=== PATIENT | female | born 1975 | race Caucasian/White ===

== ENCOUNTER 2017-05-17 17:08 | Emergency (ER) | payer OTHER ==
[~2017-05-17] VITALS: Ht 165.1 cm; Wt 79.4 kg
[~2017-05-17 17:08] MED LIST: KEFLEX 500MG.500 MG PO; NOMEDS XX; SEPTRA DS 800 M1 TAB PO; ULTRAM50 MG PO; VICODIN 5/500 T1 TAB PO; VOLTAREN75 MG PO
--- NOTE | 2017-05-17 17:28 | Emergency Room Report ---
History of Present Illness Time Seen by [id number] Presenting Problem in Triage Pt arrived:Walked Presenting Problem:PT REPORTS SHE SLIPPED AND FELL TUESDAY, STATES SHE LANDED ON HER R ARM AND SHOULDER. PT REPORTS UPPER BACK PAIN AND NECK PAIN, PT DESCRIBES PAIN A "TIGHT" FEELING. PT REPORTS PAIN IS WORSE WITH MOVEMENT. PT REPORTS BURNING SENSATION ON R SIDE OF POSTERIOR NECK. Onset of symptoms date/time:05/14/17/ or onset unknown for:MEDICAL HX UNKNOWN Treatment Prior to Arrival: [employer] Provided by: Sepsis Risk Assessment: Temp: 98.0 B/P: 161/95 MAP: 117 Pulse: 87 Resp: 18 Recent fever? N Clinical Suspician of Infection? N Mental Status: 1 - Regular (Normal Baseline) Sepsis Risk:Low Sepsis Risk Have you (or family members/close friends) recently traveled outside the [place]? N If Yes, where/when: Have you had exposure to infectious disease within the past month? N TB? Other? Specify: Comment Patient complains of neck and back injury. She fell on Tuesday 3 days ago while unloading wood from a pickup truck. She stepped on a small log in her RIGHT foot went back from under her causing her to fall forward and strike her RIGHT forearm on wood. She sustained an abrasion there. Afterwards she felt like she was okay, but since then she has developed increasingly worsening pain in her RIGHT neck and RIGHT thoracic paraspinous area. Last night she had her RIGHT arm felt "numbish" and she felt like she slept on it wrong, but no numbness or weakness today. She did not strike her head. She has been taking Advil which does not seem to help. ALLERGIES Coded Allergies: No Known Allergies (05/17/17) History Medical History General CAD? No Angina: No KS: No Hypertension? No Hyperlipidemia? No CHF? No DVT? No PE? No COPD? No Asthma? No Anemia? No GERD? No Gastric ulcers? No GI Bleed? No Hernia? No Thyroid Problems? No Hypothyroidism? No CVA? No Seizures? No Diabetes? No Renal Insuffiency? No End Stage Renal Disease? No UTI? No Stones? No GB Disease: No Nephritic Syndrome? No Asplenia? No Hepatitis? No Sickle Cell Disease? No Arthritis? No Migraines? No Cataracts? No Glaucoma? No MRSA? No HIV? No TB? No Depression? No Cancer? No More? No Immunization Hx DT/Tetanus UNKNOWN Surgical Hx Previous Surgery?Y BX GLAND UNDER RIGHT ARM CYST ON [employer] Hx LMP 5 Months Ago Social History Smoking Hx Smoker: Current Some Day Smoker Tobacco: Yes Type Cigarettes Packs/day < 1 Pack Alcohol Alcohol: Yes Review of Systems All Other Systems Reviewed and Negative Musculoskeletal back pain, neck pain Psychiatric/Neurological see HPI Physical Exam Vital Signs Vital Signs Date Time Temp Pulse Resp B/P Pulse O2 O2 Flow FiO2 Ox Delivery Rate 05/17 1845 83 18 154/79 99 05/17 1711 98.0 87 18 161/95 96 05/17 1711 87 18 161/95 96 General Appearance normal appearance, no apparent distress Neck RIGHT cervical paraspinous tenderness. Limited range of motion in all directions. Respiratory Status No: respiratory distress. Cardiovascular regular rate/rhythm, normal peripheral pulses Back no vertebral tenderness, RIGHT lower thoracic paraspinous tenderness Extremities superficial abrasions RIGHT forearm Neurologic alert, no motor/sensory deficits Medical Decision Making LABS/Meds/Orders Pt receiving controlled substance in ED? No Results/Orders Orders Procedure Date/time Status THORACIC SPINE AP & LAT-2VIEW 05/17 173 Active CERVICAL SPINE-2 TO 3 VIEWS 05/17 1733 Active XRAY/CT/US XRAY/CT/US XRAY C-spine, T-spine Comment Thoracic spine X-ray interpreted by Bulmaro Garcia MD. Negative for fracture, dislocation, or subluxation. Cervical spine X-ray interpreted by Bulmaro Garcia MD. Negative for fracture, dislocation, or subluxation. straightening present. Departure Departure Disposition DC Home or Self Care(routine) Clinical Impression Primary Impression: Cervical strain Qualifiers: Encounter type: initial encounter Qualified Code: S16.1XXA - Strain of muscle, fascia and tendon at neck level, initial encounter Secondary Impressions: Strain of thoracic spine Qualifiers: Encounter type: initial encounter Qualified Code: S29.019A - Strain of muscle and tendon of unspecified wall of thorax, initial encounter Condition STABLE Referrals NO REFERRAL (Family) Patient Instructions DI for Neck Sprain, DI for Thoracic Back Pain Additional Instructions Additional instructions for NECK PAIN and BACK PAIN: See your physician as soon as possible for further evaluation. Return immediately if neck pain becomes intolerable, or if numbness or weakness of your arms or legs, loss of control of your bowels or bladder. Prescriptions Current Visit Scripts Methocarbamol (Robaxin 750MG) 750 MG PO TIDP PRN back pain, neck pain #20 TAB Naproxen (Naprosyn 500MG Tab) 500 MG PO BID #20 TAB ED Critical Care Critical Care No at 185
[2017-05-17] MEDS ORDERED: ROBAXIN-750750 MG PO (18:26)
[2017-05-17] MEDS ORDERED: NAPROSYN500 M1 PO (18:26)
[2017-05-17 18:45] VITALS: BP 154/79
--- NOTE | 2017-05-18 05:27 | RADIOLOGY REPORT PS360 ---
CERVICAL SPINE-2 TO 3 VIEWS HISTORY: Posttraumatic pain, neck pain fell ORDERING PHYSICIAN: Bulmaro Garcia MD PATIENT AGE: 41 years COMPARISON: None FINDINGS: No fracture or dislocation. Minimal degenerative disc disease C5-6. Slight reversal of cervical lordosis. No prevertebral soft tissue swelling. IMPRESSION: 1. No acute fracture. 2. Slight reversal cervical lordosis which may be due to patient positioning or muscle
--- NOTE | 2017-05-18 05:28 | RADIOLOGY REPORT PS360 ---
THORACIC SPINE AP LAT-2VIEW CLINICAL INDICATION: Pain following injury fell ORDERING PHYSICIAN: Bulmaro Garcia MD PATIENT AGE: 41 years COMPARISON: None FINDINGS: Normal alignment. Minimal upper thoracic curvature convex right. No fracture or dislocation. No lytic or blastic change. No significant degenerative change IMPRESSION: No acute finding
== END 2017-05-17 18:46 | disposition home or self-care (01) ==
LOC: ER 17:08
DX: S16.1XXA Strain of muscle, fascia and tendon at neck level, initial encounter (principal); S29.019A Strain of muscle and tendon of unspecified wall of thorax, initial encounter; F17.210 Nicotine dependence, cigarettes, uncomplicated; W01.0XXA Fall on same level from slipping, tripping and stumbling without subsequent striking against object, initial encounter; Y92.019 Unspecified place in single-family (private) house as the place of occurrence of the external cause